=== PATIENT | female | born 1965 | race Caucasian/White ===

== ENCOUNTER 2018-11-11 18:30 | Emergency (ER) | payer BC, OTHER ==
[~2018-11-11] VITALS: Ht 170.2 cm; Wt 59.4 kg
[~2018-11-11 18:30] MED LIST: ASPI81TA26 PO; SYNT88TA2 PO
[2018-11-11 19:38] LABS: HEMATOCRIT 39.7 % (36.0-47.0); HEMOGLOBIN 13.1 g/dl (12.0-15.5); MEAN CORPUSCULAR HEMOGLOBIN 30.6 pg (27.0-33.0); MEAN CORPUSCULAR VOLUME 92.8 fl (80.0-96.0); PLATELET COUNT, AUTOMATED 913 10^3/uL (150-450); RED BLOOD COUNT 4.28 10^6/uL (4.00-5.40); WHITE BLOOD COUNT 9.8 10^3/uL (4.0-10.0)
[2018-11-11 19:56] LABS: ERYTHROCYTE SEDIMENTATION RATE 8 mm/hr (0-30)
[2018-11-11 20:08] LABS: BLOOD UREA NITROGEN 17 MG/DL (7-18); C REACTIVE PROTEIN QUANTITATIV < 0.30 MG/DL (0.00-0.30); CALCIUM LEVEL 9.8 MG/DL (8.5-10.1); CARBON DIOXIDE LEVEL 31 MEQ/L (21-32); CHLORIDE LEVEL 107 MEQ/L (98-107); CREATININE FOR GFR 0.88 MG/DL (0.55-1.30); GLOMERULAR FILTRATION RATE > 60.0 (>51); GLUCOSE, FASTING 85 MG/DL (70-100); POTASSIUM SERUM 4.4 MEQ/L (3.5-5.1); SODIUM LEVEL 140 MEQ/L (136-145)
--- NOTE | 2018-11-11 20:57 | REPVR ---
EXAM: US Duplex Left Lower Extremity Veins, Limited EXAM DATE/TIME: 11/11/2018 8:27 PM CLINICAL HISTORY: 52 years old, female; Pain; Leg, lower; Left; Additional info: Calf pain TECHNIQUE: Imaging protocol: Real-time Duplex ultrasound of the Left Lower Extremity with 2-D serrano scale, color Doppler flow and spectral waveform analysis with image documentation. Limited exam focused on the left lower extremity veins. COMPARISON: No relevant prior studies available. FINDINGS: Left deep veins: Unremarkable. The common femoral, femoral and popliteal veins are patent without thrombus. Normal compressibility, augmentation response and Doppler waveforms. Left superficial veins: Unremarkable. Saphenofemoral junction is patent without thrombus. Soft tissues: Unremarkable. IMPRESSION: No sonographic evidence of deep vein thrombosis. Electronically signed by: Jericho Quinn On 11/11/2018 20:57:17 PM
[2018-11-11 21:13] VITALS: BP 118/74
== END 2018-11-11 21:25 | disposition home or self-care (01) ==
LOC: M ED 18:30
DX: M79.662 Pain in left lower leg (principal); E03.9 Hypothyroidism, unspecified; D69.3 Immune thrombocytopenic purpura; Z85.820 Personal history of malignant melanoma of skin; Z79.890 Hormone replacement therapy; Z79.82 Long term (current) use of aspirin

== ENCOUNTER 2018-11-13 19:44 | Emergency (ER) | payer BC, OTHER ==
[~2018-11-13] VITALS: Ht 170.2 cm; Wt 59.1 kg
[2018-11-13 20:29] LABS: BASO # 0.1 10^3/uL (0.0-0.2); BASO % 0.6 % (0.0-1.0); EOS # 0.4 10^3/uL (0.0-0.50); EOS % 3.5 % (0.0-3.0); HEMATOCRIT 38.5 % (36.0-47.0); HEMOGLOBIN 12.7 g/dl (12.0-15.5); LYMPH # 3.2 10^3/uL (1.5-4.5); MEAN CORPUSCULAR HEMOGLOBIN 30.6 pg (27.0-33.0); MEAN CORPUSCULAR VOLUME 92.8 fl (80.0-96.0); MONO # 0.7 10^3/uL (0.0-0.8); MONO % 6.4 % (0.0-5.0); NEUTROPHILS # 6.6 10^3/uL (1.8-7.7); PLATELET COUNT, AUTOMATED 890 10^3/uL (150-450); RED BLOOD COUNT 4.15 10^6/uL (4.00-5.40); WHITE BLOOD COUNT 11.1 10^3/uL (4.0-10.0)
[2018-11-13 20:41] LABS: INR 0.99; PROTHROMBIN TIME 12.8 SECONDS (11.8-14.0)
[2018-11-13 20:51] LABS: BLOOD UREA NITROGEN 15 MG/DL (7-18); CALCIUM LEVEL 9.8 MG/DL (8.5-10.1); CARBON DIOXIDE LEVEL 25 MEQ/L (21-32); CHLORIDE LEVEL 106 MEQ/L (98-107); CREATININE FOR GFR 0.82 MG/DL (0.55-1.30); GLOMERULAR FILTRATION RATE > 60.0 (>51); GLUCOSE, FASTING 92 MG/DL (70-100); POTASSIUM SERUM 4.4 MEQ/L (3.5-5.1); SODIUM LEVEL 137 MEQ/L (136-145)
[2018-11-13] MEDS ORDERED: KETOROLAC 30 MG/ML VIAL (J1885) IV ONE (21:30)
--- NOTE | 2018-11-13 21:36 | REPVR ---
EXAM: US Left Non-Vascular Joint or Other Extremity Structure, Limited Lower Extremity EXAM DATE/TIME: 11/13/2018 8:48 PM CLINICAL HISTORY: 52 years old, female; Pain; Lower leg; Left; Additional info: Left lower extremity, pain, tenderness TECHNIQUE: Imaging protocol: Left US Non-Vascular Joint or Other Extremity Structure. Limited exam of the lower extremity. COMPARISON: No relevant prior studies available. FINDINGS: Soft tissues: Targeted ultrasound was performed of the left calf medially in the area of pain. A circumscribed avascular hypoechoic lesion noted in the area of pain within the deep soft tissues measures 2.9 x 0.5 x 1.5 cm. A few internal echoes are present. IMPRESSION: Small complex fluid collection noted within the deep soft tissues of the left calf in the area of pain. This could represent inferior dissection of a popliteal cyst. Electronically signed by: Pepper Watt On 11/13/2018 21:35:47 PM
[2018-11-13] MEDS ORDERED: IBUP-1022 PO (21:51)
[2018-11-13 22:12] VITALS: BP 116/74
--- NOTE | 2018-11-14 08:11 | ECGEPIP ---
[facility] - ED Test Date: 2018-11-13 Pat Name: MATILDA DARLING Department: Room: - Gender: Female Capacity Planning Manager: maribell : [id number] Requested By: PRISCILLA Esquivel Order Number: [id number] Reading MD: Ade Turner Measurements Intervals [place] Rate: 79 P: 78 MS: 181 QRS: 80 QRSD: 97 T: 69 QT: 381 QTc: 438 Interpretive Statements SINUS RHYTHM NSTTW abnormalities DELAYED R PROGRESSION No prior Electronically Signed on 11-14-2018 8:10:46 EDT by Ade Turner
== END 2018-11-13 22:17 | disposition home or self-care (01) ==
LOC: M ED 19:44
DX: M66.0 Rupture of popliteal cyst (principal); S86.812A Strain of other muscle(s) and tendon(s) at lower leg level, left leg, initial encounter; X58.XXXA Exposure to other specified factors, initial encounter; Y92.89 Other specified places as the place of occurrence of the external cause; Y99.0 Civilian activity done for income or pay; E03.9 Hypothyroidism, unspecified; Z79.899 Other long term (current) drug therapy; Z79.890 Hormone replacement therapy; Z79.82 Long term (current) use of aspirin
CPT/HCPCS: 76882; 80048; 83735; 85025; 85610; 93005; 93041; 94760; 96374; 99285; J1885

== ENCOUNTER → 2021-03-23 | Outpatient (CLI) | payer BC, OTHER ==
[~2021-03-23] MED LIST changes: +CRES5TAB PO; +IBUP-1022 PO
--- NOTE | 2021-03-23 16:00 | REPMRS ---
Patient History The patient states she had a clinical breast exam in 2020. Family history of breast cancer at age 33 in maternal cousin. Took hormonal contraceptives for 20 years. No breast complaints today Patient signed the MRS sheet 1st vaccine 06/07-Moderna 2nd vaccine 07/05 3rd vaccine 03/22-left arm Most recent priors done @ [facility] Patient Identification Verified Digital Woman Screen Mammo: March 23, 2021 - Exam #: [id number] Bilateral CC and MLO view(s) were taken. Technologist: [place], Technologist Prior study comparison: July 01, 2013, bilateral bilat screen digital mammo, performed at [facility] ([facility] May 07, 2012, bilateral bilat screen digital mammo, performed at [facility] ([facility]). FINDINGS: There are scattered fibroglandular densities. Screening. Digital screening (2D) mammography was performed bilaterally in the CC and MLO projections. Additionally, breast tomosynthesis (3D mammography) was performed bilaterally in the CC and MLO projections. Todays exam was compared to the prior exam/exams. By history, the patient has no complaints of a palpable breast abnormality or other significant breast complaints. The breasts are unchanged in size and shape. There are no german-soft tissue densities or spiculated masses. There is no internal architectural distortion. There are no suspicious german-calcific clusters. Skin thickening or nipple retraction is not present. IMPRESSION: BI-RADS Category 2- Benign Findings. There is no evidence of malignant alteration of the breasts. Followup examination recommended in one year. The Volpara volumetric breast density category is B, there are scattered areas of fibroglandular densities. This mammogram was [facility],an FDA approved computer aided detection system for mammography. The lifetime Tyrer-Cuzick score is 10.4 % Negative x-ray reports should not delay surgical consultation if a dominant or clinically suspicious mass is present. Not all breast cancers can be identified by mammography. Therefore, we recommend that you continue to perform regular breast self-examination and physical examination and then promptly contact your physician of any concerns or changes. Adenosis and dense breasts may obscure an underlying neoplasm. Assessment: BI-RADS/ACR category 2 mammogram. Benign Findings. Recommendation Routine screening mammogram of both breasts in 1 year. Electronically Signed By: Mychal Goodman DO 03/23/21 1600
--- NOTE | 2021-03-28 06:58 | DEXAMM ---
INDICATION: VARGHESE ANNUAL MAMMO / OSTO SCREENING. COMPARISON: 02/02/2019 TECHNIQUE: Bone density was measured using dual-energy x-ray absorptionmetry (DEXA). FINDINGS: AP SPINE L1-L4 BMD 1.17 g/cm2 Young Adult T-Score -0.2 Age Matched Z-Score 0.5. LT FEMUR, TOTAL BMD 0.90 g/cm2 Young Adult T-Score -0.8 Age Matched Z-Score -0.3. LT NECK BMD 0.83 g/cm2 Young Adult T-Score -1.5 Age Matched Z-Score -0.6. RT FEMUR, TOTAL BMD 0.91 g/cm2 Young Adult T-Score -0.8 Age Matched Z-Score -0.2. RT NECK BMD 0.87 g/cm2 Young Adult T-Score -1.2 Age Matched Z-Score -0.3. IMPRESSION: There is normal bone density of the spine. There is low normal bone density of the left hip. There is low normal bone density of the right hip. The density of the spine has remained stable since the initial exam on 2018. The density of the left hip has decreased 1% since initial exam on 2019. The density of the right hip has decreased 5% since the initial exam on 2019. FOLLOW-UP: Recommendation for the next bone density exam: 2 years. <Electronically signed by Geovanni Bello > 03/28/21 [id number]
== END ==
LOC: M WHC 14:38
PROVIDERS: ATTEND Obstetrics & Gynecology
DX: Z12.31 Encounter for screening mammogram for malignant neoplasm of breast (principal); Z13.820 Encounter for screening for osteoporosis

== ENCOUNTER → 2022-03-25 | Outpatient (CLI) | payer BC, OTHER | LOC: M WHC 11:51 | PROVIDERS: ATTEND Obstetrics & Gynecology | DX: Z12.31 Encounter for screening mammogram for malignant neoplasm of breast (principal) ==

== ENCOUNTER 2022-11-05 08:00 | Day surgery (SDC) | payer BC, OTHER ==
[~2022-11-05] VITALS: Ht 170.2 cm; Wt 58.2 kg
[~2022-11-05 08:00] MED LIST changes: +NS 1,000 ML IV ONE; +SYNT75TA PO; +VENL75CA47 PO; +propofoL 200 MG/20 ML VIAL As Ordered ONE
[2022-11-05] MEDS ORDERED: propofoL 200 MG/20 ML VIAL As Ordered ONE ×2 (09:59→10:10)
[2022-11-05 10:21] VITALS: TEMP 97.2
[2022-11-05 10:41] VITALS: BP 105/68; O2SAT 100
== END 2022-11-05 10:42 | disposition home or self-care (01) ==
LOC: M OPP 08:00
PROVIDERS: ATTEND Internal Medicine Gastroenterology
DX: Z12.11 Encounter for screening for malignant neoplasm of colon (principal); D12.2 Benign neoplasm of ascending colon; D12.4 Benign neoplasm of descending colon; Z79.01 Long term (current) use of anticoagulants; Z79.1 Long term (current) use of non-steroidal anti-inflammatories (NSAID); Z79.82 Long term (current) use of aspirin; Z79.890 Hormone replacement therapy

== ENCOUNTER → 2023-03-28 | Outpatient (CLI) | payer BC, OTHER ==
[~2023-03-28] MED LIST changes: -NS 1,000 ML IV ONE; -propofoL 200 MG/20 ML VIAL As Ordered ONE
== END ==
LOC: M WHC 08:48
PROVIDERS: ATTEND Obstetrics & Gynecology
DX: Z12.31 Encounter for screening mammogram for malignant neoplasm of breast (principal); Z13.820 Encounter for screening for osteoporosis; M85.89 Other specified disorders of bone density and structure, multiple sites

== ENCOUNTER 2023-05-31 15:46 | Emergency (ER) | payer BC, OTHER ==
[~2023-05-31] VITALS: Ht 170.2 cm; Wt 60.0 kg
[2023-05-31 15:47] VITALS: TEMP 98
[2023-05-31 16:28] LABS: BASO % 0.4 % (0.0-1.0); EOS # 0.1 10^3/uL (0.0-0.5); EOS % 1.1 % (0.0-3.0); HEMATOCRIT 41.1 % (36.0-47.0); HEMOGLOBIN 13.8 g/dl (12.0-15.5); LYMPH # 1.7 10^3/uL (1.5-5.0); LYMPH % 17.2 % (24.0-44.0); MEAN CORPUSCULAR HEMOGLOBIN 30.5 pg (27.0-33.0); MEAN CORPUSCULAR HGB CONC 33.6 g/dl (32.0-36.5); MEAN CORPUSCULAR VOLUME 90.9 fl (80.0-96.0); MONO # 0.7 10^3/uL (0.0-0.8); NEUTROPHILS # 7.4 10^3/uL (1.5-8.5); NEUTROPHILS % 74.1 % (36.0-66.0); PLATELET COUNT, AUTOMATED 821 10^3/uL (150-450); RED BLOOD COUNT 4.52 10^6/uL (4.00-5.40)
[2023-05-31 16:54] LABS: ALBUMIN 4.4 G/DL (3.2-5.2); ALKALINE PHOSPHATASE 51 U/L (46-116); ALT/SGPT 33 U/L (7.0-40); AST/SGOT 24 U/L (<34); BILIRUBIN,TOTAL 0.8 MG/DL (0.3-1.2); BLOOD UREA NITROGEN 12 MG/DL (9-23); CARBON DIOXIDE LEVEL 26 MMOL/L (20-31); CHLORIDE LEVEL 107 MMOL/L (98-107); CREATININE FOR GFR 0.65 MG/DL (0.55-1.30); GLOMERULAR FILTRATION RATE > 60.0 (>51); GLUCOSE, FASTING 98 MG/DL (60-100); POTASSIUM SERUM 4.7 MMOL/L (3.5-5.1); SODIUM LEVEL 140 MMOL/L (136-145); TOTAL PROTEIN 7.4 G/DL (5.7-8.2)
[2023-05-31] MEDS ORDERED: ISOVUE-370 76% 100ML VIAL As Ordered ONE (19:30)
[2023-05-31 20:30] VITALS: BP 159/76; O2SAT 98
[2023-05-31] MEDS ORDERED: ONDA4TAB6 PO (20:41)
[2023-05-31] MEDS: ONDANSETRON 4MG ORAL DISINTEGRATING TAB PO ONE (20:43)
== END 2023-05-31 20:45 | disposition home or self-care (01) ==
LOC: M ED 15:46
DX: R51.9 Headache, unspecified (principal); I49.3 Ventricular premature depolarization; E03.9 Hypothyroidism, unspecified; Z87.891 Personal history of nicotine dependence; Z79.82 Long term (current) use of aspirin; Z79.83 Long term (current) use of bisphosphonates; Z79.899 Other long term (current) drug therapy
CPT/HCPCS: 36415; 70450; 70496; 70498; 80053; 85025; 93005; 99285; Q9967

== ENCOUNTER → 2024-03-30 | Outpatient (CLI) | payer BC ==
[~2024-03-30] MED LIST changes: +ONDA-282 PO
== END ==
LOC: M WHC 08:04
PROVIDERS: ATTEND Obstetrics & Gynecology
DX: Z12.31 Encounter for screening mammogram for malignant neoplasm of breast (principal); R92.323 Mammographic fibroglandular density, bilateral breasts